=== PATIENT | female | born 2005 | race Caucasian/White ===

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

== ENCOUNTER 2024-06-13 20:16 | Emergency (ER) | payer OTHER ==
[~2024-06-13] VITALS: Ht 160 cm; Wt 43.1 kg
[2024-06-13 20:19] VITALS: BP 119/82
[2024-06-13] MEDS ORDERED: ONDA4ODT MM (20:21)
== END 2024-06-13 21:17 | disposition home or self-care (01) ==
LOC: ER 20:16
DX: U07.1 COVID-19 (principal)
CPT/HCPCS: 99283

== ENCOUNTER → 2024-08-12 | Outpatient (CLI) | payer OTHER ==
[2024-08-12 18:32] LABS: BASOPHILS ABSOLUTE AUTO 0.03 K/mm3 (0.00-0.23); BASOPHILS PERCENT AUTO 0 % (0-2); EOSINOPHILS ABSOLUTE AUTO 0.03 K/mm3 (0.00-0.68); EOSINOPHILS PERCENT AUTO 0 % (0-6); Hematocrit 42.2 % (33.0-51.0); Hemoglobin 14.2 g/dL (11.5-16.0); IMMATURE GRAN ABSOLUTE AUTO 0.02 K/mm3 (0.00-0.10); IMMATURE GRAN PERCENT AUTO 0 % (0-1); LYMPHOCYTES ABSOLUTE AUTO 2.61 K/mm3 (0.84-5.20); LYMPHOCYTES PERCENT AUTO 29 % (21-46); MONOCYTES PERCENT AUTO 8 % (4-13); Mean Corpuscular HGB 31.3 pg (26.0-34.0); Mean Corpuscular HGB Conc 33.6 g/dL (31.5-36.5); Mean Corpuscular Volume 93 fL (80-100); Mean Platelet Volume 9.4 fL (9.1-12.4); NEUTROPHILS ABSOLUTE AUTO 5.56 K/mm3 (1.96-9.15); NEUTROPHILS PERCENT AUTO 62 % (41-73); Platelet Count 356 K/mm3 (150-400); RDW Coefficient Variation 12.7 % (11.7-14.2); RDW Standard Deviation 43.7 fL (35.1-46.3); Red Blood Cell Count 4.53 M/mm3 (3.80-5.20); White Blood Cell Count 8.95 K/mm3 (4.00-11.30)
[2024-08-12 19:29] LABS: Magnesium, Blood 2.2 mg/dL (1.6-2.4); Percent Saturation 22.3 % (15.0-50.0)
[2024-08-12 19:52] LABS: Albumin, Blood 4.6 g/dL (3.4-5.0); Albumin/Globulin Ratio 1.4 (0.8-1.8); Bilirubin, Total 0.9 mg/dL (0.1-1.0); Bun/Creatinine Ratio 14.1 (12.0-20.0); Calcium, Blood 9.5 mg/dL (8.5-10.1); Creatinine, Blood 0.64 mg/dL (0.40-1.00); Free Thyroxine 0.99 ng/dL (0.70-1.60); Globulin, Blood 3.2 g/dL (2.2-4.0); Potassium, Blood 3.6 mmol/L (3.5-5.5); Thyroid Stimulating Hormone 0.477 uIU/mL (0.360-4.800); Total Protein, Blood 7.8 g/dL (6.4-8.2)
== END ==
LOC: LAB 17:30 → LAB SHORT 17:30
PROVIDERS: General Practice
DX: E46 Unspecified protein-calorie malnutrition (principal); E61.2 Magnesium deficiency; D50.8 Other iron deficiency anemias; E55.9 Vitamin D deficiency, unspecified; Z68.1 Body mass index [BMI] 19.9 or less, adult
CPT/HCPCS: 80053; 82306; 82607; 82728; 82746; 83036; 83540; 83550; 83735; 84439; 84443; 85025

== ENCOUNTER 2024-09-27 17:14 | Emergency (ER) | payer BC ==
[~2024-09-27] VITALS: Ht 172.7 cm; Wt 43.1 kg
[2024-09-27 18:00] LABS: Hematocrit 44.4 % (33.0-51.0); Hemoglobin 15.2 g/dL (11.5-16.0); Mean Corpuscular HGB 31.3 pg (26.0-34.0); Mean Corpuscular HGB Conc 34.2 g/dL (31.5-36.5); Mean Corpuscular Volume 91 fL (80-100); Mean Platelet Volume 8.5 fL (9.1-12.4); Platelet Count 417 K/mm3 (150-400); RDW Coefficient Variation 12.1 % (11.7-14.2); RDW Standard Deviation 40.6 fL (35.1-46.3); Red Blood Cell Count 4.86 M/mm3 (3.80-5.20); White Blood Cell Count 9.66 K/mm3 (4.00-11.30)
[2024-09-27 18:19] LABS: BASOPHILS PERCENT MAN 0 % (0-2); EOSINOPHILS PERCENT MAN 0 % (0-6); LYMPHOCYTES ABSOLUTE MAN 2.89 K/mm3 (0.84-5.20); LYMPHOCYTES PERCENT MAN 30 % (21-46); MONOCYTES ABSOLUTE MAN 0.38 K/mm3 (0.16-1.47); MONOCYTES PERCENT MAN 4 % (4-13); NEUTROPHILS ABSOLUTE MAN 6.37 K/mm3 (1.96-9.15); SEG NEUTROPHILS PERCENT MAN 66 % (41-73); TOTAL CELLS COUNTED 100
[2024-09-27 18:19] LABS: Source, Urine Clean Catch
[2024-09-27 18:22] LABS: Albumin, Blood 4.9 g/dL (3.4-5.0); Albumin/Globulin Ratio 1.4 (0.8-1.8); Bilirubin, Total 0.9 mg/dL (0.1-1.0); Bun/Creatinine Ratio 7.1 (12.0-20.0); Calcium, Blood 9.5 mg/dL (8.5-10.1); Creatinine, Blood 0.7 mg/dL (0.40-1.00); Globulin, Blood 3.5 g/dL (2.2-4.0); Potassium, Blood 3.4 mmol/L (3.5-5.5); Total Protein, Blood 8.4 g/dL (6.4-8.2)
[2024-09-27 18:22] LABS: Appearance, Urine Clear (Clear); Bilirubin, Urine Neg (Neg); Blood, Urine Neg (Neg); Color, Urine Yellow (P-Yellow); Glucose Qualitative, Urine Neg (Neg); Ketones, Urine Neg (Neg); Leukocyte Esterase, Urine Neg (Neg); Nitrite, Urine Neg (Neg); Protein, Urine Neg (Neg); Urobilinogen, Urine NORM (Normal)
[2024-09-27] MEDS ORDERED: Mirtazapine15 M1 PO (19:13)
[2024-09-27] MEDS ORDERED: DECARA1250 MC1 PO (19:14)
[2024-09-27] MEDS ORDERED: PANTOPRAZOLE SO40 M2 PO (19:15)
[2024-09-27] MEDS ORDERED: Potassium Chloride 20 MEQ TabCR PO ONE (19:50)
[2024-09-27] MEDS ORDERED: Metoclopramide HCl 5MG / ML 2ML Vial IV ONE (19:50)
[2024-09-27] MEDS ORDERED: NS 1,000 ML IV SCH (20:00)
[2024-09-27 20:47] LABS: Phosphorus, Blood 2.3 mg/dL (2.5-4.9)
[2024-09-27] MEDS ORDERED: METO10 PO (21:22)
[2024-09-27 21:30] VITALS: BP 101/80
== END 2024-09-27 21:38 | disposition home or self-care (01) ==
LOC: ER 17:14
PROVIDERS: Physician Assistant; Student in an Organized Health Care Education/Training Program
DX: R11.2 Nausea with vomiting, unspecified (principal); M41.9 Scoliosis, unspecified; Z79.899 Other long term (current) drug therapy
CPT/HCPCS: 80053; 81003; 81025; 83735; 84100; 85025; 93005; 93010; 96361; 96374; 99284-25; A9270; J2765; J7030